=== PATIENT | female | born 1970 | race Caucasian/White ===

== ENCOUNTER → 2020-03-01 | Outpatient (CLI) | payer BC ==
[~2020-03-01] MED LIST: BENTYL 20MG TAB20 MG PO; IBUPROFEN800 MG PO; LODINE CAP 300300 MG PO; NEURONTIN 300300 MG PO; ZOFRAN ODT 4 MG4 MG PO
[2020-03-02 12:13] LABS: RHEUMATOID ARTHRITIS FACTOR 10.1 IU/mL (0.0-13.9)
[2020-03-02 16:14] LABS: ALDOLASE 3.4 U/L (3.3-10.3)
== END ==
LOC: LAB 10:29
PROVIDERS: Internal Medicine
DX: D89.89 Other specified disorders involving the immune mechanism, not elsewhere classified (principal); M25.50 Pain in unspecified joint; R76.8 Other specified abnormal immunological findings in serum; R53.83 Other fatigue; M79.10 Myalgia, unspecified site
CPT/HCPCS: 36415; 82085; 82550; 82728; 86200; 86431

== ENCOUNTER → 2020-03-15 | Outpatient (CLI) | payer BC, OTHER | LOC: EXRD 10:33 | DX: M31.30 Wegener's granulomatosis without renal involvement (principal) | CPT/HCPCS: 71046 ==

== ENCOUNTER → 2020-04-11 | Outpatient (CLI) | payer BC, OTHER ==
[2020-04-12 09:15] LABS: THYROXINE (T4) 7.8 ug/dL (4.5-12.0)
== END ==
LOC: LAB 10:38
PROVIDERS: Internal Medicine Cardiovascular Disease
DX: R00.2 Palpitations (principal)
CPT/HCPCS: 36415; 84436; 84443; 84480

== ENCOUNTER → 2020-04-25 | Outpatient (CLI) | payer BC, OTHER | LOC: KOH-I 11:26 | DX: J32.9 Chronic sinusitis, unspecified (principal); R51.9 Headache, unspecified | CPT/HCPCS: 70486 ==

== ENCOUNTER → 2021-04-23 | Outpatient (CLI) | payer BC | LOC: EMI 04-16 13:00 | DX: G43.009 Migraine without aura, not intractable, without status migrainosus (principal); G44.89 Other headache syndrome; H70.93 Unspecified mastoiditis, bilateral | CPT/HCPCS: 70551 ==

== ENCOUNTER → 2021-04-26 | Outpatient (CLI) | payer BC ==
[2021-04-26 09:53] LABS: HEMOGLOBIN 12.9 gm/dl (12.3-15.3); RED BLOOD COUNT 4.54 M/UL (4.00-5.10); WHITE BLOOD COUNT 8.7 K/UL (4.5-11.0)
[2021-04-26 10:37] LABS: BUN/CREATININE RATIO 17 (0-10)
[2021-04-27 08:17] LABS: VITAMIN D, 25-HYDROXY 31.8 ng/mL (30.0-100.0)
== END ==
LOC: LAB 08:20
PROVIDERS: Nurse Practitioner Family
DX: J02.9 Acute pharyngitis, unspecified (principal); R53.83 Other fatigue
CPT/HCPCS: 36415; 80053; 80061; 82607; 82746; 83036; 83540; 83550; 84439; 84443; 85025

== ENCOUNTER → 2021-07-17 | Outpatient (CLI) | payer BC | LOC: KOH-I 13:13 | DX: I65.23 Occlusion and stenosis of bilateral carotid arteries (principal) | CPT/HCPCS: 93880 ==

== ENCOUNTER → 2021-11-06 | Outpatient (CLI) | payer BC | LOC: KOH-I 10:54 | DX: M54.50 Low back pain, unspecified (principal); M47.816 Spondylosis without myelopathy or radiculopathy, lumbar region | CPT/HCPCS: 72100 ==